=== PATIENT | male | born 1935 | race Caucasian/White ===

== ENCOUNTER 2020-03-29 19:42 | Emergency (ER) | payer MEDICARE ==
--- NOTE | 2020-03-29 21:43 | EDM.PDOC ---
ED HPI GENERAL MEDICAL PROBLEM - General Chief Complaint: Respiratory Problem Stated Complaint: SOB/COUGHING/COVID POSITIVE Time Seen by Provider: 03/29/20 20:04 Source of Information: Reports: Patient, Other (CBC, CMP results from today) History Limitations: Reports: No Limitations - History of Present Illness INITIAL COMMENTS - FREE TEXT/NARRATIVE: Mr. Payan is a very pleasant 84-year-old gentleman who now presents the ED, sent over from the [facility], due to possible pneumonia associated with COVID- 19. The patient states that he developed a nonproductive cough and mild cold- like symptoms, followed by loss of taste and smell, therefore he was tested for the SARS-CoV-2 virus on 03/18/2020. The test returned positive on 03/21/2020. Since then, he has developed increased fatigue and worsened nonproductive cough. He states that he had a temperature of 101 degrees this morning, therefore he returned to the clinic today. A CBC, CMP, and two-view chest x-ray were pe rformed. His CBC was notable for a WBC count of 4.4 with an H/H of 15.4/44.2, and platelets of 130,000. His CMP was notable for sodium of 135, potassium 4.6, chloride 98, bicarbonate 25, BUN/Cr 14/1.0, and a blood glucose of 104. His chest x-ray was interpreted as bilateral infiltrates, worse on the left than the right. Here in the ED, the patient is found to be slightly bradycardic at 59 bpm, otherwise, he is hemodynamically stable, afebrile, saturating 100% on room air. Other than his cough, fatigue, and fever, the patient denies having recent chills, sore throat, ear pain, nasal or sinus congestion, dyspnea, chest pain, palpitations, nausea, vomiting, constipation, diarrhea, abdominal pain, urinary symptoms, recent weight gain or weight loss, recent bloody bowel movements or black bowel movements, recent joint aches, headaches, or rashes. The patient states that 3 of his family members tested positive for COVID-19. The patient's PCP is Dr. Akira Del Angel. He has another PCP and Urologist in [place]. - Related Data Allergies Allergy/AdvReac Type Severity Reaction Status Date / Time No Known Allergies Allergy Verified 03/29/20 19:49 Home Meds: Home Meds Calcium Citrate [Calcitrate (190 MG Calcium)] 950 mg PO DAILY 03/29/20 [History] Gluc/MSM/C/Chest[place]ridge/Manganes/Prim [Joint Support Complex Softgel] 1 each PO DAILY 03/29/20 [History] Lecithin, Soy [Lecithin] 1,200 mg PO DAILY 03/29/20 [History] Levothyroxine [Synthroid] 100 mcg PO ACBREAKFAST 03/29/20 [History] [place]-3/DHA/Epa/Fish Oil [Fish Oil 1,000 mg Softgel] 1,000 mg PO DAILY 03/29/20 [History] Past Medical History Respiratory History: Reports: Sleep Apnea (nightly AutoPAP) Gastrointestinal History: Reports: Bowel Obstruction, GERD Musculoskeletal History: Reports: Osteoarthritis Endocrine/Metabolic History: Reports: Hypothyroidism (following partial thyroidectomy) Oncologic (Cancer) History: Reports: Bladder (s/p removal) - Past Surgical History HEENT Surgical History: Reports: Detached Retina (bilateral) GI Surgical History: Reports: Cholecystectomy (around 1997) Musculoskeletal Surgical History: Reports: Hip Replacement (left) Oncologic Surgical History: Reports: Other (See Below) (Bladder and prostate removal, with creation of a RLQ urostomy 1997, due to bladder cancer) Social & Family History - Tobacco Use Smoking Status *Q: Former Smoker Years of Tobacco use: 20 Packs/Tins Daily: 2 Month/Year Tobacco Last Used: Quit 1975 - Caffeine Use Caffeine Use: Reports: Coffee - Alcohol Use Alcohol Use History: Yes Alcohol Use Frequency: Daily (nightly glass of wine) - Recreational Drug Use Recreational Drug Use: No - Living Situation & Occupation Living situation: Reports: , with Family (Granddaughter) Occupation: Retired ED ROS GENERAL - Review of Systems Review Of Systems: Comprehensive ROS is negative, except as noted in HPI. ED EXAM, GENERAL - Physical Exam Exam: See Below Exam Limited By: No Limitations General Appearance: Alert, WD/WN, No Apparent Distress Eye Exam: Bilateral Eye: EOMI, Normal Inspection Ears: Normal External Exam, Hearing Grossly Normal Nose: Normal Inspection Throat/Mouth: Normal Inspection, Normal Lips, Normal Voice, No Airway Compromise Head: Atraumatic, Normocephalic Neck: Normal Inspection, Full Range of Motion Respiratory/Chest: No Respiratory Distress, No Accessory Muscle Use, Crackles (left base). No: Decreased Breath Sounds, Rhonchi, Wheezing, Stridor, Prolonged Expiration Cardiovascular: Normal Peripheral Pulses, Regular Rate, Rhythm, No Edema, No Gallop, No JVD, No Murmur, No Rub Peripheral Pulses: 3+: Radial (L), Radial (R) GI/Abdominal: Normal Bowel Sounds, Soft, Non-Tender, No Organomegaly, No Distention, No Abnormal Bruit, No Mass (Male) Exam: Deferred Rectal (Males) Exam: Deferred Back Exam: Normal Inspection, Full Range of Motion, NT Extremities: Normal Inspection, Normal Range of Motion, No Pedal Edema, Normal Capillary Refill Neurological: Alert, Oriented, Normal Cognition, No Motor/Sensory Deficits Psychiatric: Normal Affect Skin Exam: Warm, Dry, Intact, Normal Color, No Rash Lymphatic: No Adenopathy EKG INTERPRETATION EKG Date: 03/29/20 Time: 21:51 Rhythm: NSR Rate (Beats/Min): 62 [place]: Normal P-Wave: Present QRS: Normal (Early transition) ST-T: Normal QT: Normal Comparison: NA - No Prior EKG Course - Vital Signs Last Recorded V/S: Last Vital Signs Temp 36.6 C 03/29/20 19:53 Pulse 59 L 03/29/20 19:53 Resp 18 03/29/20 19:53 BP 132/75 03/29/20 19:53 Pulse Ox 100 03/29/20 19:53 - Orders/Labs/Meds Orders: Active Orders 24 hr Category Date Time Status Chest 2V [CR] Stat Exams 03/29/20 21:35 Once CULTURE BLOOD [BC] Stat Lab 03/29/20 22:20 Received CULTURE BLOOD [BC] Stat Lab 03/29/20 22:30 Received Blood Culture x2 Reflex Set [OM.PC] Stat Oth 03/29/20 21:35 Ordered Labs: Laboratory Tests 03/29/20 03/29/20 03/29/20 Range/Units 22:20 22:20 22:20 PT 11.6 (9.7-12.0) SECONDS INR 1.09 APTT 32 H (22-31) SECONDS D-Dimer, Quantitative 1.32 H (0.19-0.50) mg/L Lactic Acid (0.4-2.0) mmol/L Ferritin (26-388) ng/ml Lactate Dehydrogenase 224 (85-227) U/L Creatine Kinase 40 (39-308) U/L C-Reactive Protein 6.9 H* (<1.0) mg/dL NT-Pro-B Natriuret Pep (0-450) pg/mL 03/29/20 03/29/20 03/29/20 Range/Units 22:20 22:20 22:20 PT (9.7-12.0) SECONDS INR APTT (22-31) SECONDS D-Dimer, Quantitative (0.19-0.50) mg/L Lactic Acid 1.6 (0.4-2.0) mmol/L Ferritin 434 H (26-388) ng/ml Lactate Dehydrogenase (85-227) U/L Creatine Kinase (39-308) U/L C-Reactive Protein (<1.0) mg/dL NT-Pro-B Natriuret Pep 225 (0-450) pg/mL - Re-Assessments/Exams Free Text/Narrative Re-Assessment/Exam: 03/29/20 21:37 As above, the patient developed a dry cough with mild cold-like symptoms on 03/18/2020, was tested for the SARS-CoV-2 virus on 03/21/2020, with a positive result on 03/25/2020, with increased fatigue and a dry cough for today. A CBC and CMP from the [facility] are unremarkable, however, we are told that a chest x-ray showed bibasilar infiltrates, worse on the left than the right. Reviewing his chest x-ray, the patient appears to have a subtle increased opacity at his left base, but I do not see any abnormalities on the right side. Here in the ED, his oxygen saturation is 100% on room air. On examination, he does have some crackles at the left base, but his examination is otherwise completely unremarkable. I have ordered a work-up that includes a repeat chest x-ray, along with blood work to evaluate for severity of COVID-19, along with 2 sets of blood cultures, and an ECG. 03/29/20 22:50 2-view chest radiograph is read by the read as "Grossly, no pneumonia." 03/29/20 23:48 The patient's lactic acid level is within normal limits at 1.6. His CPK is within normal limits at 40. His CRP is modestly elevated at 6.9. His D-dimer is elevated at 1.32. His PT is within normal limits at 11.6 with an INR slightly elevated at 1.09 and a PTT slightly elevated at 32. His LDH is within normal limits at 224. His ferritin is modestly elevated at 434. His BNP is within normal limits at 225. 03/30/20 00:00 Test results discussed with the patient. As above, the patient has some markers consistent with COVID-19, however, none are significantly elevated. With respect to his elevated D-dimer, I discussed the possibility of a pulmonary embolus, and therefore offered to perform a CT angiogram of the chest, however, the patient stated that because he has minimal pulmonary symptoms, that appear to be improving, he declined. I will therefore discharge the patient home. We discussed the possibility of having a home health nurse come in and see him, and possibly check his oxygen saturation on a daily basis. The patient like that idea, but was skeptical as to whether or not it might be feasible in [place]. I will discuss the possibility with our charge nurse. In the meantime, the patient will see if he can purchase a finger pulse oximeter. I explained to the patient that even if his breathing feels fine, if his oxygen saturation declines, he should return to the ER for reevaluation. Departure - Departure Time of Disposition: 00:02 Disposition: Home, Self-Care 01 Condition: Good Clinical Impression: COVID-19 - Discharge Information *PRESCRIPTION DRUG MONITORING PROGRAM REVIEWED*: Not Applicable *COPY OF PRESCRIPTION DRUG MONITORING REPORT IN PATIENT RASHID: Not Applicable Instructions: COVID-19, COVID-19: How to Protect Yourself and Others - [facility] Referrals: Akira Del Angel MD [Primary Care Provider] - Forms: ED Department Discharge Additional Instructions: You were seen in the emergency room after being sent over from the clinic for a chest x-ray that suggested that you have pneumonia, in the setting of testing positive for COVID-19 on 03/21/2020. Work-up in the ER included blood work that looked at a variety of markers that indicate the severity of COVID-19, along with 2 sets of blood cultures, an ECG, and a repeat chest x-ray. Some of the markers that typically go up with COVID-19 were elevated, but only mildly so. The repeat chest x-ray was read by the Radiologist as negative for pneumonia. A CT angiogram of your chest to evaluate for a pulmonary embolus was offered, but declined. As discussed, we recommend that you attempt to purchase a pulse oximeter, and check your oxygen saturation daily. If your oxygen saturation declines, even if you are feeling well, we recommend that you return to the ER. The possibility of having a home health nurse come and visit you will be discussed with the charge nurse, however, no action will likely be taken until this coming 04/01/2020. Sepsis Event Note (ED) - Evaluation Sepsis Screening Result: No Definite Risk - Focused Exam Vital Signs: Vital Signs Temp Pulse Resp BP Pulse Ox 03/29/20 19:53 36.6 C 59 L 18 132/75 100 - My Orders Last 24 Hours: My Active Orders 03/29/20 21:35 Chest 2V [CR] Stat Blood Culture x2 Reflex Set [OM.PC] Stat 03/29/20 22:20 CULTURE BLOOD [BC] Stat 03/29/20 22:30 CULTURE BLOOD [BC] Stat - Assessment/Plan Last 24 Hours: My Active Orders 03/29/20 21:35 Chest 2V [CR] Stat Blood Culture x2 Reflex Set [OM.PC] Stat 03/29/20 22:20 CULTURE BLOOD [BC] Stat 03/29/20 22:30 CULTURE BLOOD [BC] Stat
--- NOTE | 2020-03-30 10:27 | CR ---
Chest: 2 views of the chest were obtained. Comparison: No prior chest imaging is available. Heart size at the upper limits of normal. Tortuous thoracic aorta is seen. Slight increased central lung markings are noted. Lungs otherwise are clear. Bony structures are grossly intact. Degenerative spurring is noted within the spine. Impression: 1. Increased central lung markings. Difficult to exclude bronchitis. 2. Nothing acute is otherwise definitely seen. Diagnostic code #3 Agree with preliminary report issued by [facility] ([facility] preliminary report dictated on 03/29/20, 11:15 PM Central Daylight Time) Study was dictated in MDT
== END 2020-03-30 00:32 | disposition home or self-care (01) ==
LOC: JD.ED 19:42
DX: U07.1 COVID-19 (principal); E03.9 Hypothyroidism, unspecified; Z87.891 Personal history of nicotine dependence; Z79.899 Other long term (current) drug therapy
CPT/HCPCS: 36415; 71046; 71046-26; 82550; 82728; 83605; 83615; 83880; 85379; 85610; 85730; 86140; 87040; 93005; 93010; 99282; 99284-25